=== PATIENT | male | born 1950 | race Caucasian/White ===

== ENCOUNTER 2022-08-01 03:25 | Inpatient (IN) ==
[2022-08-02] MEDS ORDERED: ACETAMINOPHEN 325 MG TAB PO PRN ×2 (04:52→20:21)
--- NOTE | 2022-08-02 05:03 | History & Physical Report ---
Date of Service August 02, 2022 Assessment & Plan (1) Lower extremity weakness: Plan: 72yo Male with PMH HTN and colon cancer here for progressive lower extremity weakness, transferred from [place] Lower Extremity Weakness -[place] CT lumbar: mild multilevel spondylosis with up to mild b/l neural foraminal narrowing -ordered MRI lumbar spine -consulted placed to ortho -NPO now -pain control with ibuprofen Elevated LFTs -noted on labs from [place] -repeat CMP HTN -continue lisinopril HCTZ, carvedilol -uncertain if he is on amlodipine at this time FENa: NPO Code Status: Full DVT PPX: SCDs PT/OT: ordered Dispo: med/surg Venecia Saravia D.O. PGY 2, FCM (2) HTN (hypertension): Admission and Anticipated Discharge Date Admission Date: August 02, 2022 History of Present Illness Primary Care Provider: Inna Mancuso, 72yo Male with PMH HTN and colon cancer here for progressive lower extremity weakness, transferred from [place]. Patient states 10 days ago he woke up with a spasm in his lower back, does not recall any injury, no prior back surgeries. Since then he experienced progressive lower extremity weakness, feels like his knees and ankles won't support his weight. Denies any numbness tingling fever chills SOB chest pain abd pain nausea vomiting. He does not require assistive walking devices at baseline. At [place] ED he received dexamethasone 10mg, Naproxen 250mg. Noted elevated LFTs, WBC 14.12, ESR 91. CT lumbar spine w/o contrast notes mild multilevel spondylosis with up to mild b/l neural foraminal narrowing, CD with imaging provided. States his knees felt better after the naproxen. Allergies Allergy/AdvReac Type Severity Reaction Status Date / Time No Known Allergies Allergy Unverified 08/02/22 04:39 Home Medications Medication Instructions Recorded Confirmed Type carvedilol 12.5 mg tablet 12.5 mg PO BID 08/02/22 08/02/22 History cyclobenzaprine 5 mg tablet 5 mg PO TID PRN Muscle Spasm 08/02/22 08/02/22 Histo ry lisinopril 20 1 tab PO DAILY 08/02/22 08/02/22 History mg-hydrochlorothiazide 25 mg tablet Past Med/Surg History Social History Smoking Status: Former smoker Second Hand Exposure: No; Do You Dip or Chew Tobacco: No; Hx Alcohol Use: No Hx Substance Use: No Preferred Language: Chinese Communication Ability: Effective Software Product Manager Required: No Beliefs That Will Affect Care: None Current Living Situation: Spouse Other Information That Helps Us Care for You: No Feels Safe at Home: Yes Safety Concerns: Feels Safe At This Time Assistive Devices: Hospital Bed and Walker Physical Exam Constitutional: well developed, well nourished, cooperative and comfortable Eyes: PERRL, conjunctivae normal, anicteric sclerae ENMT: external ear and nose normal, oropharynx normal Neck: trachea midline, no thyromegaly Respiratory: normal respiratory effort, lungs clear to auscultation Cardiovascular: Rate/Rhythm: regular rate and regular rhythm Gastrointestinal (Abdomen): Inspection/Auscultation: abdomen normal to inspection Musculoskeletal: 5/5 strength in lower extremities Required multiple attending rocking forward to stand from bed to walker. Skin: no rashes, warm and dry Neurologic: sensation intact in lower extremities Supervising Physician Co-Signing Physician Notes Attending addendum: I have physically seen this patient, have supervised the medical residents activities, and agree with the H&P unless as otherwise noted. Assessment and Plan: Bilateral lower extremity weakness- Transferred from [facility] emergency department for further work-up, in particular MRI lumbar spine N.p.o. Order MRI lumbar spine Consult orthopedic spine surgery Pain management as noted Hypertension- Continue lisinopril/hydrochlorothiazide, and carvedilol hold amlodipine until verified Elevated LFTs- Noted on labs from [place] Repeat here and order imaging if needed Remaining orders and notations as noted Resident Activity Tracking Resident Involvement: Resident Care Provided Care Provided: Adult Hospital Medicine
[2022-08-02] MEDS ORDERED: IBUPROFEN 600 MG TAB PO PRN (05:16)
[2022-08-02 05:58] LABS: Hematocrit (blood only) 36.5 % (42.0-52.0); Hemoglobin 12.6 g/dl (14.0-18.0); Mean Corpuscular Hemoglobin 29.1 pg (25.0-34.0); Mean Corpuscular Hgb Conc 34.5 g/dL (32.0-36.0); Mean Corpuscular Volume 84.3 fL (80.0-100.0); Platelet Count 319 K/uL (130-400); RDW Coefficient of Variation 12.8 % (11.5-14.5); RDW Standard Deviation 39.3 fL (36.4-46.3); Red Blood Count 4.33 M/uL (4.70-6.10); White Blood Count 12.58 K/ul (4.8-10.8)
[2022-08-02 06:17] LABS: Albumin Globulin Ratio 0.7 (0.9-2); Albumin Level 3.2 gm/dl (3.4-5.0); BUN Creatinine Ratio 30.9 (10-20); Bilirubin,Total 0.9 mg/dl (0.2-1.0); Calcium 11.1 mg/dl (8.6-10.3); Creatinine Clr Calc Pharmacy 67.8 ml/min; Est GFR (African American) 66.6 ml/min; Est GFR (Non-African American) 57.5 ml/min; Globulin 4.3 gm/dl (2.5-4.0); Potassium 3.8 mmol/L (3.5-5.1); Total Protein 7.5 gm/dl (6.0-8.3)
--- NOTE | 2022-08-02 07:56 | Hospitalist Progress Note ---
Date of Service August 02, 2022 Assessment & Plan (1) Lower extremity weakness: Plan: 72yo male with PMHx HTN and colon cancer transferred from [place] for imaging to evaluate progressive lower extremity weakness. Lower Extremity Weakness [place] CT lumbar: mild multilevel spondylosis with up to mild b/l neural foraminal narrowing. DDx stenosis vs lumbosacral syndrome vs cauda equina vs idiopathic. MRI lumbar spine: multilevel degenerative changes with moderate bilateral neural foraminal stenosis. Ortho consult - appreciate recs MRI not concerning for emergent etiology Pain control - ibuprofen Leukocytosis WBC 12.58. Continue to monitor. Hypercalcemia | Elevated Alk P | Elevated PTH | Vitamin D Deficiency Ca 11.1. PTH 89.1. Vitamin D 25.1. Appears to be PTH driven. May be contributing to symptoms. Transaminitis Noted on labs from [place] AM CMP Hyponatremia 134. Continue to monitor. HTN Continue lisinopril HCTZ, carvedilol. Uncertain if he is on amlodipine at this time. FENa: heart healthy Code Status: Full DVT PPX: SCDs PT/OT: ordered Dispo: med/surg (2) HTN (hypertension): Admission and Anticipated Discharge Date Admission Date: August 02, 2022 Supervising Physician Co-Signing Physician Notes I personally examined the patient and verified all herrera points of history and exam, discussed case, and agree with decision making with Dr Gann Seen after MRI. Extensive history. Notes that about 2 weeks ago he had what he thought was basically a back strainhe had pain in his back felt like he pulled a muscle, it hurt worse with movementhe did have a little bit of difficulty walking but it was largely because of pain. Muscle relaxant/NSAIDs helped. About a week ago he started with knee and ankle pain and at that point it seemed like the pain was causing weaknessnot a lot of swelling may be some but nothing of significance, no fevers chills or sweatsand then this progressed to where he had pain and weakness that both seem to more or less be equally dominantI asked him multiple different lines of questioning, and it definitely was not a pure weakness situation, but it also definitely did not seem like it was purely that pain was causing the weakness. At this point he also had a lot more swelling, both knees and ankles bilaterallyand so tender that his could not even really touch ithe notes he has had gout before, and the joints were all symmetrically bad, and not nearly as red or swollen as whenever he has had gout before. He got to where he really could not get aroundwent to the [facility] that the Naprosyn and 10 mg of Decadron given there seem to help quite significantlyand now the pain is definitely a lot better, but the weakness seems to persist. Again no fevers chills or sweats, he was in his normal state of health prior to about 2 weeks agokeya notes that at baseline he is got some knee arthritis but generally speaking as long as he is neither sitting too long or standing too long he generally feels okay with this. The back pain seems to really fit with biomechanical strainand is not really a chronic or severe thing, the leg weakness is all new. He has no saddle anesthesia no loss of bowel or bladder control. Vitals noted, in general he is awake and alert pleasant no distress. HEENT normocephalic atraumatic mucous membranes moist. Breathing unlabored no accessory muscle use good effort. Skin shows no rashes no pallor or icterus. Bilateral lower extremities show what seems to have been 2+ edema that has been largely remedied by SCDs. He has good sensation that seems grossly to be intact and symmetric. Motor at the foot and ankle appears to be more or less 5 out of 5his left leg is slightly weaker than his right but still overall grossly normal, same with flexion and extension at the knee. Interestingly flexion at the hip is probably 3 out of 5 at best and more or less symmetric bilaterally, extension at the hip seems to be pretty good probably 4-5 out of 5 on the right and probably 4 out of 5 on the left. Whenever I ask him to stand, he is able to maneuver to the edge of the bed get his feet firmly on the floor, whenever he stands up it really seems like it is at his hips/pelvis where he is weak, and he tries to use his arms to help him standeven whenever he reaches standing is almost like a "seated standing position" and he looks too unstable that I do not ask him to ambulate. Of note knees and ankles do not have significant joint effusions, nontender, nonerythematous, and I push quite hard. Leg weakness/pain -Etiology not entirely clearhis history would fit more with a rheumatologic processbut is not entirely clear that the pain is causing the weaknessand now his knees and ankles really examine fairly normally, his edema is significantly worse than apparently it normally is, but nontenderand his muscle weakness seems to be more at his hips than his knees and ankleshe gives a history of it being at the knees and ankles, but I do wonder if it was the hips all along or if this is migratory/progressivenot entirely clear. His MRI certainly does not show a severe enough degree or focal enough degree of stenosis to feel like that is a plausible explanation for his symptoms -Follow-up ESR, CRP in the morning -I discussed with the patient quite frankly that I will need some assistance from consulting physicianswith the proximal muscle weakness I wonder about a neuromuscular processand neurology may be able to assist in elucidating the etiology; at the same time with the knee and ankle pain and swelling to the point that he was not able to even have anybody touch itthat would sound more rheumatologicbut given that that seems to have resolved at this time, and its not entirely clear which "bucket" the etiology is going to fitwe will start with serial exams, serial labs, reviewing literature, and asking neurology for input. If this is of little yield, then may switch to asking rheumatology for assistance as well. Subjective Patient heading down to MRI at the time of evaluation. History limited. Will need more information Physical Exam Physical Exam: Gen: well appearing elderly gentleman, appears stated age, NAD HEENT: AT NC Resp: no increased work of breathing, speaking in full sentences CV: clinically well perfused GI: obese, non-distended Psych: appropriate mood and affect Neuro: alert and oriented, no focal deficits MSK: no gross deformities Results & Data Results & Data Vital Signs (Past 12 Hours) Vital Signs Temp Pulse Resp BP Pulse Ox O2 Del Method 08/02/22 05:15 36.5 C 98 H 14 157/80 H 96 Room Air 08/02/22 04:35 36.5 C 98 H 14 157/80 H 96 Room Air Laboratory Results 08/02/22 05:42 08/02/22 05:42 Diagnostic Findings Lumbar Spine MRI 08/02/22 05:06 MR lumbar spine wo con CLINICAL HISTORY: lower extremity weakness TECHNIQUE: Multiplanar sequences through the lumbar spine were obtained, without intravenous contrast. Comparison: None available at the time of this dictation. FINDINGS: Multilevel extradural fat is seen in the spinal canal. L1-L2: No significant abnormality. L2-L3: There may be mild narrowing of the left neural foramen according to a lat eral disc bulge and associated extradural fat. L3-L4: No significant abnormality. L4-L5: There is a broad-based posterior disc bulge with moderate bilateral neuroforaminal stenosis. L5-S1: Broad-based posterior disc bulge is seen with mild bilateral neural foraminal stenosis. The spinal ligaments are intact, without evidence of disruption or abnormal signal intensity. The spinal cord is normal in signal intensity and there is no evidence of cord contusion. There is no evidence of an extradural, intradural, extramedullary or intramedullary lesion. Visualized soft tissues are normal. IMPRESSION: Multilevel degenerative changes are seen with up to moderate bilateral neural foraminal stenosis. Resident Activity Tracking Resident Involvement: Resident Care Provided Care Provided: Adult [facility] Medicine
[2022-08-02] MEDS: LISINOPRIL/HCTZ 20/25MG 1 TAB PO SCH (08:03)
[2022-08-02] MEDS: carvediloL 12.5 MG TAB PO SCH ×2 (08:03→20:10)
--- NOTE | 2022-08-02 11:08 | Magnetic Resonance Report ---
MR lumbar spine wo con CLINICAL HISTORY: lower extremity weakness TECHNIQUE: Multiplanar sequences through the lumbar spine were obtained, without intravenous contrast . Comparison: None available at the time of this dictation. FINDINGS: Multilevel extradural fat is seen in the spinal canal. L1-L2: No significant abnormality. L2-L3: There may be mild narrowing of the left neural foramen according to a lateral disc bulge and a ssociated extradural fat. L3-L4: No significant abnormality. L4-L5: There is a broad-based posterior disc bulge with moderate bilateral neuroforaminal stenosis. L5-S1: Broad-based posterior disc bulge is seen with mild bilateral neural foraminal stenosis. The spinal ligaments are intact, without evidence of disruption or abnormal signal intensity. The spi nal cord is normal in signal intensity and there is no evidence of cord contusion. There is no eviden ce of an extradural, intradural, extramedullary or intramedullary lesion. Visualized soft tissues are normal. IMPRESSION: Multilevel degenerative changes are seen with up to moderate bilateral neural foraminal stenosis. ACT 112: Negative or not required by law. Electronically signed by: Ahsan Ramos M.D. 08/02/2022 11:06 AM
--- NOTE | 2022-08-02 16:53 | Communication Note ---
Date of Service: August 02, 2022 notables from [facility] chart review given 10mg decadron, 250mg naproxen BMP w calcium 11.1, Cr 1.28, alk phos 164 CBC WBC 14.12, 77.9% neut ESR 91 CT Lspine mild multilevel spondylosis, mild bilateral neuro foraminal narrowing CRP and knee Xrays appear to have been ordered but results not attached
[2022-08-02] MEDS ORDERED: NAPROXEN 250 MG TAB PO PRN (20:20)
[2022-08-02] MEDS ORDERED: MICONAZOLE NITRATE POWDER 85 GM EXT PRN (21:57)
--- NOTE | 2022-08-03 02:22 | Billing Data ---
Date of Service August 03, 2022 Coding Level of Care Code 70490 INT INP/OBS CARE
[2022-08-03 06:25] LABS: Hematocrit (blood only) 34.9 % (42.0-52.0); Mean Corpuscular Hemoglobin 29.1 pg (25.0-34.0); Mean Corpuscular Hgb Conc 34.4 g/dL (32.0-36.0); Mean Corpuscular Volume 84.7 fL (80.0-100.0); Mean Platelet Volume 10.2 fL (9.4-12.4); Platelet Count 394 K/uL (130-400); RDW Standard Deviation 39.8 fL (36.4-46.3); Red Blood Count 4.12 M/uL (4.70-6.10); White Blood Count 16.54 K/ul (4.8-10.8)
[2022-08-03 06:56] LABS: Albumin Globulin Ratio 0.7 (0.9-2); BUN Creatinine Ratio 43.3 (10-20); Bilirubin,Total 0.4 mg/dl (0.2-1.0); C Reactive Protein 11.81 mg/dl (0-0.5); Calcium 11.1 mg/dl (8.6-10.3); Creatinine Clr Calc Pharmacy 69.5 ml/min; Est GFR (African American) 68.6 ml/min; Est GFR (Non-African American) 59.2 ml/min; Globulin 4.3 gm/dl (2.5-4.0); Potassium 3.9 mmol/L (3.5-5.1); Total Protein 7.3 gm/dl (6.0-8.3)
--- NOTE | 2022-08-03 07:56 | Hospitalist Progress Note ---
"Date of Service August 03, 2022 Assessment & Plan (1) Lower extremity weakness: Plan: 72 y/o male with PMHx HTN and colon cancer transferred from [place] for imaging to evaluate progressive lower extremity weakness. Lower Extremity Weakness [place] CT lumbar: mild multilevel spondylosis with up to mild b/l neural foraminal narrowing. DDx stenosis vs lumbosacral syndrome vs cauda equina vs idiopathic vs rheumatologic vs neurologic. MRI lumbar spine: multilevel de generative changes with moderate bilateral neural foraminal stenosis. Will consult neurology. In addition may consider rheumatologic consult as he does have elevated CRP and ESR. Ortho consult - appreciate recs MRI not concerning for emergent etiology Pain control - ibuprofen, naproxen, tylenol Neuro consult - appreciate recs Leukocytosis Continue to monitor. Hypercalcemia | Elevated Alk P | Elevated PTH | Vitamin D Deficiency Ca 11.1. PTH 89.1. Vitamin D 25.1. Appears to be PTH driven. May be contributing to symptoms. Transaminitis Noted on labs from [place] AM CMP Hyponatremia - resolved HTN Continue lisinopril HCTZ, carvedilol. Uncertain if he is on amlodipine at this time. FENa: heart healthy Code Status: Full DVT PPX: SCDs PT/OT: ordered Dispo: med/surg (2) HTN (hypertension): Admission and Anticipated Discharge Date Admission Date: August 02, 2022 Subjective Patient doing well this morning. No pain. Reports continued BLE weakness. Review of Systems Review of Systems: See HPI Physical Exam Physical Exam: Gen: well appearing elderly gentleman, appears stated age, NAD HEENT: AT NC Resp: CTAB no increased work of breathing, speaking in full sentences CV: RRR no m/r/g clinically well perfused GI: obese, non-distended Psych: appropriate mood and affect Neuro: alert and oriented, no focal deficits MSK: no gross deformities Results & Data Results & Data Vital Signs (Past 12 Hours) Vital Signs Temp Pulse Resp BP Pulse Ox O2 Del Method 08/03/22 07:07 36.5 C 68 17 123/65 95 Room Air 08/02/22 21:35 36.5 C 87 18 125/75 94 Room Air Laboratory Results 08/03/22 05:41 08/03/22 05:41 Resident Activity Tracking Resident Involvement: Resident Care Provided Care Provided: Adult [facility] Medicine"
[2022-08-03] MEDS: LISINOPRIL/HCTZ 20/25MG 1 TAB PO SCH (08:32)
[2022-08-03] MEDS: carvediloL 12.5 MG TAB PO SCH (08:32)
--- NOTE | 2022-08-03 10:25 | Orthopedic Consultation ---
Date of Consultation August 03, 2022 Assessment & Plan (1) Neurogenic claudication due to lumbar spinal stenosis: MRI lumbar spine demonstrates evidence of severe facet hypertrophy and evidence of instability with marked fluid within the bilateral facets most impressively at L4-L5 followed by L5-S1. I suspect that upon standing he is developing some spondylolisthesis and subsequent neural compression that could be contributing to his strength deficits. Certainly would appreciate the input from neurology and this somewhat strange presentation. Would like to obtain standing x-rays but he is unable to do so. This would give us a greater appreciation prevent any underlying instability not appreciated on his supine MRI. We will attempt x-rays in a seated position if possible. History of Present Illness Reason for Consultation: Bilateral leg weakness Attending Physician: Misbah Galindo, History of Present Illness This is a 72-year-old male that had a decline in status over the past several days. He does work full-time delivering ODs. He typically tolerates this without difficulty. He states that he started having a twinge of back pain and progressive strength deficits originally seen at [facility] and now in our institution. He has some pain rating down the legs into the knees. This is resolved at this time. He is comfortable when he is in bed but he cannot stand secondary to weakness in his ankles and quadriceps. Allergies Allergy/AdvReac Type Severity Reaction Status Date / Time No Known Allergies Allergy Unverified 08/02/22 04:39 Home Medications Medication Instructions Recorded Confirmed Type carvedilol 12.5 mg tablet 12.5 mg PO BID 08/02/22 08/02/22 History cyclobenzaprine 5 mg tablet 5 mg PO TID PRN Muscle Spasm 08/02/22 08/02/22 History lisinopril 20 1 tab PO DAILY 08/02/22 08/02/22 History mg-hydrochlorothiazide 25 mg tablet Patient History Social History Smoking Status: Former smoker Second Hand Exposure: No; Do You Dip or Chew Tobacco: No; Hx Alcohol Use: No Hx Substance Use: No Preferred Language: Korean Communication Ability: Effective Demonstrator Electric Gas Appliances Required: No Beliefs That Will Affect Care: None Current Living Situation: Spouse Other Information That Helps Us Care for You: No Feels Safe at Home: Yes Safety Concerns: Feels Safe At This Time Assistive Devices: Hospital Bed and Walker Physical Exam Physical Exam: On exam he exhibits reasonable +5-5 plantarflexion dorsiflexion quadriceps in bed. Sensory appears to be symmetric and intact. Results & Data Vital Signs (Past 12 Hours) Vital Signs Temp Pulse Resp BP Pulse Ox O2 Del Method 08/03/22 07:07 36.5 C 68 17 123/65 95 Room Air
--- NOTE | 2022-08-03 11:38 | Neurology Consultation ---
Date of Consultation August 03, 2022 Assessment & Plan (1) Lower extremity weakness: The diagnosis on this patient is not yet certain and will acquire additional evaluation. I do not believe te symmetric proximal lower extremity is due to spinal stenosis. Differential diagnosis includes AIDP, polymyositis,vasculitic neuropathy. AIDP can present with acute onset back pain with elevated sed rate and CRP. No CK level checked on arrival. - Recommend transfer to Neurology service line for concerns regarding AIDP vs polymyositis. Patient asymptomatic in upper extremities. No skin rash. With no bulbar symptoms. ON examine difficulty standing from seated position which is new. He was normal 2 weeks ago. Reflexes not noted but per patient difficult to elicit at [facility]. - Recommend CK, lyme, BRYANT, ANCA, B12, mag, phosphorous, myositis panel, BRYANT. Consider paraneoplastic antibody panel. - MRI lumbar spine with contrast - LP for protein, glucose, cell count, cytology History of Present Illness Reason for Consultation: Lower extremity weakness Attending Physician: Misbah Galindo DO History of Present Illness A 72 year old male with historyof colon cancer and HTN transferred from [facility] for for progressive lower extremity weakness. This was a televideo consult. Symptoms started 10 days ago witha spasm in his lower back followed by progressive lower extremity weakness and trouble walking. He denies any recent injury or prior back surgeries. Denies any numbness tingling fever chills SOB chest pain abd pain nausea vomiting. He does not ambulate with a cane or walker. At [place] ED he received dexamethasone 10mg, Naproxen 250mg. Noted elevated LFTs, WBC 14.12, ESR 91. CT lumbar spine w/o contrast notes mild multilevel spondylosis with up to mild b/l neural foraminal narrowing, CD with imaging provided. Allergies Allergies Allergy/AdvReac Type Severity Reaction Status Date / Time No Known Allergies Allergy Unverified 08/02/22 04:39 Home Medications Medication Instructions Recorded Confirmed Type carvedilol 12.5 mg tablet 12.5 mg PO BID 08/02/22 08/02/22 History cyclobenzaprine 5 mg tablet 5 mg PO TID PRN Muscle Spasm 08/02/22 08/02/22 History lisinopril 20 1 tab PO DAILY 08/02/22 08/02/22 History mg-hydrochlorothiazide 25 mg tablet Patient History Social History Smoking Status: Former smoker Second Hand Exposure: No; Do You Dip or Chew Tobacco: No; Hx Alcohol Use: No Hx Substance Use: No Preferred Language: Slovenian Communication Ability: Effective Wellness Coordinator Required: No Beliefs That Will Affect Care: None Current Living Situation: Spouse Other Information That Helps Us Care for You: No Feels Safe at Home: Yes Safety Concerns: Feels Safe At This Time Assistive Devices: Hospital Bed and Walker Physical Exam Physical Exam: Patient was seen and examine. Awake and alert. No distress. Specch is clear. No facial droop. Following commands. Tongue midline. Using walker to stand from seated position with wide based ataxic gait. No tremor. Able to lift legs from bed while supine. Sensation intact. No rash or signficiant edema. Results & Data Vital Signs (Past 12 Hours) Vital Signs Temp Pulse Resp BP Pulse Ox O2 Del Method 08/03/22 07:07 36.5 C 68 17 123/65 95 Room Air Laboratory Results CRP 11.81 ESR 102 Diagnostic Findings MR lumbar spine wo con CLINICAL HISTORY: lower extremity weakness TECHNIQUE: Multiplanar sequences through the lumbar spine were obtained, without intravenous contrast. Comparison: None available at the time of this dictation. FINDINGS: Multilevel extradural fat is seen in the spinal canal. L1-L2: No significant abnormality. L2-L3: There may be mild narrowing of the left neural foramen according to a lateral disc bulge and associated extradural fat. L3-L4: No significant abnormality. L4-L5: There is a broad-based posterior disc bulge with moderate bilateral neuroforaminal stenosis. L5-S1: Broad-based posterior disc bulge is seen with mild bilateral neural foraminal stenosis. The spinal ligaments are intact, without evidence of disruption or abnormal signal intensity. The spinal cord is normal in signal intensity and there is no evidence of cord contusion. There is no evidence of an extradural, intradural, extramedullary or intramedullary lesion. Visualized soft tissues are normal. IMPRESSION: Multilevel degenerative changes are seen with up to moderate bilateral neural foraminal stenosis.
--- NOTE | 2022-08-03 12:10 | XRay Report ---
STANDING AP, LATERAL AND LATERAL L5-S1 VIEWS OF THE LUMBAR SPINE CLINICAL HISTORY: Rule out instabilty, sitting films if possible COMPARISON STUDY: Lumbar spine MRI August 02, 2022. FINDINGS: There is mild levoscoliosis of the lumbar spine. Vertebral body heights are maintained. The re is no fracture or osseous lesion within the lumbar spine. There is 4 mm anterolisthesis of L4 on L 5. This is likely due to facet arthrosis. There is moderate to severe multilevel facet arthrosis and mild degenerative disc disease within the lumbar spine. IMPRESSION: 1. No lumbar spine fracture or subluxation. 2. Moderate to severe multilevel facet arthrosis and mild degenerative disc disease within the lumbar spine. 3. Grade I anterolisthesis of L4 and L5 due to facet arthrosis. ACT 112: Negative or not required by law. Electronically signed by: Morgan Smith M.D. 08/03/2022 12:09 PM
--- NOTE | 2022-08-03 12:16 | XRay Report ---
XR lumbar spine flex/ext only CLINICAL HISTORY: Evaluate for instability. Back pain. Lower extremity weakness. COMPARISON STUDY: Lumbar spine MRI August 02, 2022. FINDINGS: There is grade one anterolisthesis of L4 and L5. This does not significantly change during flexion or extension. There is diminished flexion and extension on this examination. Moderate to danielle re facet arthrosis is present. There is mild disc space narrowing and osteophytosis within the lumbar spine. There are no fractures within the lumbar spine. IMPRESSION: 1. Mild anterolisthesis of L4 and L5, due to facet arthrosis. No definite evidence for instability ho wever diminished flexion and extension on this exam, as described above. 2. No lumbar spine fractures. 3. Moderate to severe facet arthrosis and mild degenerative disc disease within the lumbar spine. ACT 112: Negative or not required by law. Electronically signed by: Morgan Smith M.D. 08/03/2022 12:13 PM
--- NOTE | 2022-08-03 15:21 | Discharge Summary ---
"Date of Service August 03, 2022 Admission HPI Per Admitting Provider 72yo Male with PMH HTN and colon cancer here for progressive lower extremity weakness, transferred from [place]. Patient states 10 days ago he woke up with a spasm in his lower back, does not recall any injury, no prior back surgeries. Since then he experienced progressive lower extremity weakness, feels like his knees and ankles won't support his weight. Denies any numbness tingling fever chills SOB chest pain abd pain nausea vomiting. He does not require assistive walking devices at baseline. At [place] ED he received dexamethasone 10mg, Naproxen 250mg. Noted elevated LFTs, WBC 14.12, ESR 91. CT lumbar spine w/o contrast notes mild multilevel spondylosis with up to mild b/l neural foraminal narrowing, CD with imaging provided. States his knees felt better after the naproxen. Admission Exam Per Admitting Provider Constitutional: well developed, well nourished, cooperative and comfortable Eyes: PERRL, conjunctivae normal, anicteric sclerae ENMT: external ear and nose normal, oropharynx normal Neck: trachea midline, no thyromegaly Respiratory: normal respiratory effort, lungs clear to auscultation Cardiovascular: Rate/Rhythm: regular rate and regular rhythm Gastrointestinal (Abdomen): Inspection/Auscultation: abdomen normal to inspection Musculoskeletal: 5/5 strength in lower extremitiesRequired multiple attending rocking forward to stand from bed to walker. Skin: no rashes, warm and dry Neurologic: sensation intact in lower extremities Principal Diagnosis BLE weakness Discharge Exam Gen: well appearing elderly gentleman, appears stated age, NAD HEENT: AT NC Resp: CTAB no increased work of breathing, speaking in full sentences CV: RRR no m/r/g clinically well perfused GI: obese, non-distended Psych: appropriate mood and affect Neuro: alert and oriented, no focal deficits MSK: no gross deformities Discharge Data Allergies Allergy/AdvReac Type Severity Reaction Status Date / Time No Known Allergies Allergy Unverified 08/02/22 04:39 Consultations 08/02/22 05:40 Consult Orthopedic Spine Surgery Routine 08/02/22 19:04 Consult Neurology Routine Ordered Studies Lumbar Spine MRI 08/02/22 05:06 MR lumbar spine wo con CLINICAL HISTORY: lower extremity weakness TECHNIQUE: Multiplanar sequences through the lumbar spine were obtained, without intravenous contrast. Comparison: None available at the time of this dictation. FINDINGS: Multilevel extradural fat is seen in the spinal canal. L1-L2: No significant abnormality. L2-L3: There may be mild narrowing of the left neural foramen according to a lateral disc bulge and associated extradural fat. L3-L4: No significant abnormality. L4-L5: There is a broad-based posterior disc bulge with moderate bilateral neuroforaminal stenosis. L5-S1: Broad-based posterior disc bulge is seen with mild bilateral neural foraminal stenosis. The spinal ligaments are intact, without evidence of disruption or abnormal signal intensity. The spinal cord is normal in signal intensity and there is no evidence of cord contusion. There is no evidence of an extradural, intradural, extramedullary or intramedullary lesion. Visualized soft tissues are normal. IMPRESSION: Multilevel degenerative changes are seen with up to moderate bilateral neural foraminal stenosis. Lumbar Spine X-Ray 08/03/22 10:25 STANDING AP, LATERAL AND LATERAL L5-S1 VIEWS OF THE LUMBAR SPINE CLINICAL HISTORY: Rule out instabilty, sitting films if possible COMPARISON STUDY: Lumbar spine MRI August 02, 2022. FINDINGS: There is mild levoscoliosis of the lumbar spine. Vertebral body heights are maintained. There is no fracture or osseous lesion within the lumbar spine. There is 4 mm anterolisthesis of L4 on L5. This is likely due to facet arthrosis. There is moderate to severe multilevel facet arthrosis and mild degenerative disc disease within the lumbar spine. IMPRESSION: 1. No lumbar spine fracture or subluxation. 2. Moderate to severe multilevel facet arthrosis and mild degenerative disc disease within the lumbar spine. 3. Grade I anterolisthesis of L4 and L5 due to facet arthrosis. Spine Flexion/Extension X-Ray 08/03/22 10:25 XR lumbar spine flex/ext only CLINICAL HISTORY: Evaluate for instability. Back pain. Lower extremity weakness. COMPARISON STUDY: Lumbar spine MRI August 02, 2022. FINDINGS: There is grade one anterolisthesis of L4 and L5. This does not significantly change during flexion or extension. There is diminished flexion a nd extension on this examination. Moderate to severe facet arthrosis is present. There is mild disc space narrowing and osteophytosis within the lumbar spine. There are no fractures within the lumbar spine. IMPRESSION: 1. Mild anterolisthesis of L4 and L5, due to facet arthrosis. No definite evidence for instability however diminished flexion and extension on this exam, as described above. 2. No lumbar spine fractures. 3. Moderate to severe facet arthrosis and mild degenerative disc disease within the lumbar spine. Hospital Course (1) Lower extremity weakness: (2) HTN (hypertension): Plan 72 y/o male with PMHx HTN and colon cancer transferred from [place] for imaging to evaluate progressive lower extremity weakness. Lower Extremity Weakness [place] CT lumbar: mild multilevel spondylosis with up to mild b/l neural foraminal narrowing. DDx stenosis vs lumbosacral syndrome vs cauda equina vs idiopathic vs rheumatologic vs neurologic. MRI lumbar spine: multilevel degenerative changes with moderate bilateral neural foraminal stenosis. Will consult neurology. In addition may consider rheumatologic consult as he does have elevated CRP and ESR. Ortho consult - appreciate recs MRI not concerning for emergent etiology Pain control - ibuprofen, naproxen, tylenol Neuro consult - discussed that patient would benefit from an inpatient neurology service as the primary. Patient would also benefit from an in person neuro exam. Not an option at [facility]. Accepted to [facility] by Dr. Meehan in neurology. Leukocytosis Continue to monitor. Hypercalcemia | Elevated Alk P | Elevated PTH | Vitamin D Deficiency Ca 11.1. PTH 89.1. Vitamin D 25.1. Appears to be PTH driven. May be contributing to symptoms. Transaminitis Noted on labs from [place] AM CMP Hyponatremia - resolved HTN Continue lisinopril HCTZ, carvedilol. Uncertain if he is on amlodipine at this time. FENa: heart healthy Code Status: Full DVT PPX: SCDs PT/OT: ordered Dispo: transfer to [facility] Total Time Total Time Spent Total Time Spent (In Minutes): <30 Discharge Plan Discharge Items Patient Disposition: Transfer Acute Care Hospital Reason For Visit: WEAKNESS Discharge Diagnosis: BLE weakness Activity: Per Instructions section Non-emergency contact: Primary Care Provider Call non-emergency contact if: your symptoms worsen Follow-up/Referrals: Inna Mancuso DO [Primary Care Provider] - Diet: Heart Healthy Addtl Attending Provider Instructions: 72 y/o male with PMHx HTN and colon cancer transferred from [place] for imaging to evaluate progressive lower extremity weakness. Lower Extremity Weakness [place] CT lumbar: mild multilevel spondylosis with up to mild b/l neural foraminal narrowing. DDx stenosis vs lumbosacral syndrome vs cauda equina vs idiopathic vs rheumatologic vs neurologic. MRI lumbar spine: multilevel degenerative changes with moderate bilateral neural foraminal stenosis. Will consult neurology. In addition may consider rheumatologic consult as he does have elevated CRP and ESR. Ortho consult - appreciate recs MRI not concerning for emergent etiology Pain control - ibuprofen, naproxen, tylenol Neuro consult - discussed that patient would benefit from an inpatient neurology service as the primary. Patient would also benefit from an in person neuro exam. Not an option at [facility]. Accepted to [facility] by Dr. Meehan in neurology. Leukocytosis Continue to monitor. Hypercalcemia | Elevated Alk P | Elevated PTH | Vitamin D Deficiency Ca 11.1. PTH 89.1. Vitamin D 25.1. Appears to be PTH driven. May be contributing to symptoms. Transaminitis Noted on labs from [place] AM CMP Hyponatremia - resolved HTN Continue lisinopril HCTZ, carvedilol. Uncertain if he is on amlodipine at this time. FENa: heart healthy Code Status: Full DVT PPX: SCDs PT/OT: ordered Dispo: transfer to [facility] Pending Studies at Discharge: No Stand-Alone Forms: My [facility] Skilled Items Patient informed of condition?: Yes DNR: No Discharge Level of Care: Other Communicable Disease: No Discharge Prognosis: Stable Lines: Peripheral IV Urinary Catheter: No Medications and DC Order Prescriptions: New acetaminophen 325 mg Tablet 650 mg PO Q6H PRN (Reason: pain) Qty: 14 0RF miconazole nitrate [Desenex] 2 % Powder 1 applic EXT PRN PRN (Reason: yeast rash) Qty: 85 0RF naproxen 250 mg Tablet 500 mg PO BID PRN (Reason: pain) Qty: 20 0RF Continued carvedilol 12.5 mg Tablet 12.5 mg PO BID Rx Instructions: must administer with a meal/food cyclobenzaprine 5 mg Tablet 5 mg PO TID PRN (Reason: Muscle Spasm) lisinopril-hydrochlorothiazide 20-25 mg Tablet 1 tab PO DAILY Discharge Orders: Discharge Order (Routine); Ordered 08/03/22 Ordered By: Zeny Gann Admission Data Admit Date/Time: 08/02/22 04:34 Attending Provider: Misbah Galindo Admit Provider: Dez Jacome Primary Care Provider: Inna Mancuso Other Providers: Mich Byrnes ; Dez Jacome ; Delfino Chicas Other Interventions: Discharge Summary Assessment (RN) Last Done: 08/03/22 15:01 Supervising Physician Co-Signing Physician Notes I personally examined the patient and verified all herrera points of history and exam, discussed case, and agree with decision making with Dr Gann. Legs feels little bit stronger today. No recurrence of pain. Still quite weak though. Neurology and Ortho/spine input greatly appreciated. After discussion with neurology, resident physician affected transfer to [facility] Extensive discussion with patient and on working diagnosis and next steps. Vitals noted, in general he is awake and alert pleasant no distress. HEENT normocephalic atraumatic mucous membranes moist. Breathing unlabored no accessory muscle use good effort. Skin shows no rashes no pallor or icterus Bilateral lower extremity weaknessinflammatory process such as AIDP does fit the clinical picture well. Appreciate Ortho/spine inputalthough that would not explain the inflammatory markers, and fortunately his flexion/extension x-rays seemed to be fairly reassuring per radiology review. Transfer for neurology service/ability for in person neurology/ability to more effectively streamline diagnosis and then treatment. Discussed expectations both for work-up and treatment in depth to patient and answered all questions the best my ability. Resident Activity Tracking Resident Involvement: Resident Care Provided Care Provided: Adult Hospital Medicine"
--- NOTE | 2022-08-03 19:01 | Billing Data ---
Date of Service August 03, 2022 Coding Level of Care Code 43400 IN/OBS DISCH 30 MIN/LESS
== END 2022-08-03 17:43 | disposition short-term general hospital (02) | DRG 948 ==
LOC: INTOOBSV 08-02 04:34 → 3E 08-02 04:34 → SUATTDRO 08-02 04:34 → OBSVTOIN 08-02 04:34